=== PATIENT | female | born 1985 | race American Indian/Alaskan Native ===

== ENCOUNTER 2021-02-13 19:30 | Outpatient (CLI) | payer SELFPAY ==
[2021-02-13] MEDS ORDERED: ACETAMINOPHEN 500 MG TAB PO ONE (20:40)
[2021-02-13 20:43] LABS: Bilirubin,Urine NEG (Negative); Blood,Urine NEG (Negative); Color,Urine Yellow (Yellow); Mucus,Urine FEW /HPF; Protein,Urine <15 mg/dL mg/dL (Negative); RBC,Urine < 1.0 /HPF (0.0-6.0); Urobilinogen,Urine < 2.0 mg/dL (<2.0)
[2021-02-13 20:44] VITALS: BP 105/59
== END 2021-02-13 21:24 | disposition home or self-care (01) ==
LOC: TRG 19:30 → APU 19:33 → TRG 21:24
PROVIDERS: ATTEND Obstetrics & Gynecology
DX: O26.893 Other specified pregnancy related conditions, third trimester (principal); M54.5 Low back pain; R39.15 Urgency of urination; Z3A.33 33 weeks gestation of pregnancy
CPT/HCPCS: 59025; 81001